=== PATIENT | female | born 1985 ===

== ENCOUNTER 2023-08-17 14:24 | Observation (INO) | payer BC ==
[2023-08-17] MEDS ORDERED: Terbutaline 1 MG/ML SDV SUBCUT PRN (15:00)
[2023-08-17] MEDS ORDERED: Oxytocin/0.9 % Sodium Chloride 30 UNIT/500 ML BAG IV SCH (15:00)
[2023-08-17] MEDS ORDERED: Misoprostol 200 MCG Tab PO PRN (15:04)
[2023-08-17] MEDS ORDERED: Tranexamic Acid IN NACL,ISO-OS 1,000 MG in Premix Bag 1 BAG IV PRN (15:04)
[2023-08-17] MEDS ORDERED: Sodium Chloride 0.9% 20 ML SDV IV PRN (15:04)
[2023-08-17] MEDS ORDERED: Ondansetron 4 MG/2 ML SDV IVPUSH PRN (15:04)
[2023-08-17] MEDS ORDERED: Carboprost Tromethamine 250 MCG/1 mL Vial IM PRN (15:04)
[2023-08-17] MEDS ORDERED: Sodium Chloride 0.9% 2.5 ML Syringe FLUSH PRN (15:04)
[2023-08-17] MEDS ORDERED: Sodium Chloride 0.9% 10 ML Syringe FLUSH PRN (15:04)
[2023-08-17] MEDS ORDERED: Methylergonovine 0.2 MG/1 ML Amp IM PRN (15:04)
[2023-08-17] MEDS ORDERED: Lidocaine 1% 50 ML MDV INJECT PRN (15:04)
[2023-08-17] MEDS ORDERED: Water For Irrigation,Sterile 1,000 ML Container IRR PRN (15:04)
[2023-08-17 15:29] LABS: HEMATOCRIT 34.8 % (37.0-47.0); MEAN CORPUSCULAR HEMOGLOBIN 31.3 pg (28.0-32.0); MEAN CORPUSCULAR HGB CONC 34.5 g/dL (32.0-36.0); MEAN CORPUSCULAR VOLUME 90.6 fL (83.0-99.0); MEAN PLATELET VOLUME 9.3 fL (9.4-12.3); PLATELET COUNT,PLT 293 K/uL (150-400); RED BLOOD CELL COUNT 3.84 M/uL (4.10-5.30); WHITE BLOOD CELL COUNT,WBC 10.38 K/uL (3.9-11.3)
[2023-08-17] MEDS: Misoprostol 25 MCG (1/4 of 100 MCG) Tab PO PRN ×2 (16:17→20:07)
[2023-08-17] MEDS: Misoprostol 25 MCG (1/4 of 100 MCG) Tab VAG PRN ×2 (16:17→20:07)
[2023-08-18] MEDS: Misoprostol 50 MCG (1/2 of 100 MCG) Tab ONE (00:30)
[2023-08-18] MEDS: Nalbuphine 10 MG/0.5 ML Syringe IVPUSH PRN (02:31)
[2023-08-18] MEDS ORDERED: Misoprostol 50 MCG (1/2 of 100 MCG) Tab ONE (06:31)
[2023-08-18] MEDS: Misoprostol 100 MCG Tab PO SCH (06:48)
[2023-08-18] MEDS: Lactated Ringers 1,000 ML IV SCH (07:00)
[2023-08-18] MEDS: Oxytocin/0.9 % Sodium Chloride 30 UNIT/500 ML BAG IV SCH (08:55)
[2023-08-21 05:03] LABS: TOXOPLASMA IGG 72.3 IU/mL (<=8.8); TOXOPLASMA IGM <3.0 AU/mL (<=7.9)
== END 2023-08-18 13:30 | disposition home or self-care (01) ==
LOC: MW.OBCHECK 14:24 → MW.OB 14:31 → INTOOBSV 15:04 → MW.OB 15:04 → MW.OBCHECK 16:46
PROVIDERS: ADMIT Obstetrics & Gynecology Obstetrics; ATTEND Obstetrics & Gynecology Obstetrics
DX: O36.4XX0 Maternal care for intrauterine death, not applicable or unspecified (principal); Z3A.36 36 weeks gestation of pregnancy; Z79.899 Other long term (current) drug therapy
CPT/HCPCS: 36415; 59409; 76815; 85027; 86592; 86777; 86778; 86850; 86900; 86901; 87497; 87536; A9270; J2300; J2590; J7120